=== PATIENT | female | born 1995 | race African-American/Black ===

== ENCOUNTER 2020-05-30 22:10 | Emergency (ER) | payer OTHER ==
[~2020-05-30] VITALS: Ht 154.9 cm; Wt 63.5 kg
[2020-05-31] MEDS ORDERED: MECLIZINE HCL25 MG PO (02:57)
== END 2020-05-31 03:03 | disposition home or self-care (01) ==
LOC: ER 22:10
DX: R42 Dizziness and giddiness (principal)